=== PATIENT | male | born 1995 | race Two or more races ===

== ENCOUNTER 2017-05-09 19:51 | Emergency (ER) | payer BC ==
[2017-05-09] MEDS: BUPIVACAINE MPF 0.25% 10 ML VIAL. IJ (20:19)
== END 2017-05-09 21:13 | disposition short-term general hospital (02) ==
LOC: ER 19:51
DX: S62.647B Nondisplaced fracture of proximal phalanx of left little finger, initial encounter for open fracture (principal); S60.457A Superficial foreign body of left little finger, initial encounter; W29.4XXA Contact with nail gun, initial encounter; Y93.89 Activity, other specified; Y92.89 Other specified places as the place of occurrence of the external cause; Y99.8 Other external cause status
CPT/HCPCS: 64450; 73130; 99285-25; J3490